=== PATIENT | female | born 1960 | race Caucasian/White ===

== ENCOUNTER 2017-08-22 18:20 | Observation (INO) | payer OTHER ==
[2017-08-22] VITALS (7 sets, daily range): BP systolic 106–116; BP diastolic 65–74; PULSE 79–86; RESP 14–18; TEMP 96.6–97.9; O2SAT 98–99
[~2017-08-22 18:20] MED LIST: CALC600T12 PO; MULT-65 PO; NITR.4 SL; PERC5TAB12 PO
--- NOTE | 2017-08-22 18:36 | PD ---
HPI Chief Complaint: Chest Pain Time Seen by Provider: 18:35 Travel History International Travel<30 days: No Contact w/Intl Traveler<30days: No Traveled to known affect area: No History of Present Illness HPI 57-year-old female came to the emergency room with history of shortness of breath and substernal chest pain for past 45 minutes. Patient says she was taking a nap when she woke up she started feeling like this. Since it was very distressing she asked her to take her to the urgent care. Patient says the pain is substernal and nonradiating all. It feels like a pressure. It's worse upon taking a deep breath. She feels like she cannot get enough air in. Vital signs are stable. She looks anxious. She's never had this kind of pain before. She had a stress test she says many years ago. No history of coronary artery disease or stents. She was sent from urgent care center to the emergency room for workup. [facility] Past Medical History Narrative Medical List of her past medical, surgical, social and family history is reviewed from the nursing note. Cancer: No Cardiovascular Problems: Yes (HEART CATH 02/15) High Cholesterol: Yes Chest Pain: Yes Diabetes: No Diminished Hearing: No Endocrine: Yes Genitourinary: No Hepatitis: No Hiatal Hernia: No Immune Disorder: No Musculoskeletal: No Neurologic: No Psychiatric: No Reproductive: Yes (FIBROIDS; BLEEDING ) Respiratory: No Thyroid Disease: Yes (NODULE- APPT TO FOLLOW) Past Surgical History Abdominal Surgery: No AICD: No Body Medical Devices: BILATERAL BREAST AUGMENTATION Cardiac Surgery: Yes (02/15 HEART CATH) Ear Surgery: No Eye Surgery: No Genitourinary Surgery: No Gynecologic Surgery: Yes (MYOMECTOMY) Joint Replacement: No Oral Surgery: No Pacemaker: No Thoracic Surgery: No Other Surgery: Yes (NASAL SX, BREAST AUMENTATION.) Social History Alcohol Use: No Tobacco Use: No Substance Use: No Allergies-Medications (Allergen,Severity, Reaction): Coded Allergies: codeine (Verified Adverse Reaction, Unknown, N/V, 08/22/17) INTERMEDIATE REACTION ; NAUSEA AND VOMITING Comments List of her allergies reviewed from the nursing note. Reported Meds & Prescriptions Reported Meds & Active Scripts Active No Active Prescriptions or Reported Medications Narrative Medication List of her home medications reviewed from the nursing note. Review of Systems Except as stated in HPI: all other systems reviewed are Neg Cardiovascular: Positive: Chest Pain or Discomfort Respiratory: Positive: Shortness of Breath Physical Exam Narrative GENERAL: Awake, alert, anxious, moderate distress SKIN: Focused skin assessment warm/dry. HEAD: Atraumatic. Normocephalic. EYES: Pupils equal and round. No scleral icterus. No injection or drainage. ENT: No nasal bleeding or discharge. Mucous membranes pink and moist. NECK: Trachea midline. No JVD. CARDIOVASCULAR: Regular rate and rhythm. No murmur appreciated. RESPIRATORY: No accessory muscle use. Clear to auscultation. Breath sounds equal bilaterally. GASTROINTESTINAL: Abdomen soft, non-tender, nondistended. Hepatic and splenic margins not palpable. MUSCULOSKELETAL: No obvious deformities. No clubbing. No cyanosis. No edema. NEUROLOGICAL: Awake and alert. No obvious cranial nerve deficits. Motor grossly within normal limits. Normal speech. PSYCHIATRIC: Appropriate mood and affect; insight and judgment normal. Data Data Last Documented VS Orders Orders Electrocardiogram (08/22/17 18:40) Basic Metabolic Panel (Bmp) (08/22/17 18:40) Complete Blood Count With Diff (08/22/17 18:40) D-Dimer (08/22/17 18:40) Magnesium (Mg) (08/22/17 18:40) Prothrombin Time / Inr (Pt) (08/22/17 18:40) Troponin I (08/22/17 18:40) Chest, Single Ap (08/22/17 18:40) Ecg Monitoring (08/22/17 18:40) Bilateral Bp Monitoring (08/22/17 18:40) Iv Access Insert/Monitor (08/22/17 18:40) Oximetry (08/22/17 18:40) Oxygen Administration (08/22/17 18:40) Aspirin Chew (Aspirin Chew) (08/22/17 18:45) Sodium Chloride 0.9% Flush (Ns Flush) (08/22/17 18:45) Alprazolam (Xanax) (08/22/17 18:45) Admit Order (Ed Use Only) (08/22/17 20:30) Place In Observation (08/22/17 20:30) Activity Bed Rest With Brp (08/22/17 20:30) Vital Signs (Adult) Q4H (08/22/17 20:30) Cardiac Rhythm .As Directed (08/22/17 20:30) Notify Dr: Other .PRN (08/22/17 20:30) Notify Dr. Parameters (08/22/17 20:30) Resp Oxygen Nasal Cannula (08/22/17 ) Diet Npo (08/23/17 Breakfast) Ckmb (Isoenzyme) Profile (08/22/17 22:00) Ckmb (Isoenzyme) Profile (08/23/17 01:00) Troponin I (08/22/17 22:00) Troponin I (08/23/17 01:00) Electrocardiogram (08/22/17 22:00) Electrocardiogram (08/23/17 01:00) ^ Obtain (08/22/17 20:30) Sodium Chloride 0.9% Flush (Ns Flush) (08/22/17 20:30) Sodium Chloride 0.9% Flush (Ns Flush) (08/22/17 21:00) Acetaminophen (Tylenol) (08/22/17 20:30) Morphine Inj (Morphine Inj) (08/22/17 20:30) Ondansetron Inj (Zofran Inj) (08/22/17 20:30) Paint Striping Machine Operator / Telemetry MIQUEL.Q8H (08/22/17 20:30) Heparin Inj (Heparin Inj) (08/22/17 22:00) Labs Laboratory Tests Test 08/22/17 18:45 White Blood Count 7.1 TH/MM3 Red Blood Count 4.34 MIL/MM3 Hemoglobin 13.2 GM/DL Hematocrit 38.1 % Mean Corpuscular Volume 87.7 FL Mean Corpuscular Hemoglobin 30.4 PG Mean Corpuscular Hemoglobin Concent 34.7 % Red Cell Distribution Width 11.9 % Platelet Count 311 TH/MM3 Mean Platelet Volume 7.6 FL Neutrophils (%) (Auto) 41.1 % Lymphocytes (%) (Auto) 49.4 % Monocytes (%) (Auto) 8.4 % Eosinophils (%) (Auto) 0.8 % Basophils (%) (Auto) 0.3 % Neutrophils # (Auto) 2.9 TH/MM3 Lymphocytes # (Auto) 3.5 TH/MM3 Monocytes # (Auto) 0.6 TH/MM3 Eosinophils # (Auto) 0.1 TH/MM3 Basophils # (Auto) 0.0 TH/MM3 CBC Comment DIFF FINAL Differential Comment Prothrombin Time 9.9 SEC Prothromb Time International Ratio 1.0 RATIO D-Dimer Quantitative (PE/DVT) 0.20 MG/L FEU Blood Urea Nitrogen 11 MG/DL Creatinine 0.77 MG/DL Random Glucose 75 MG/DL Calcium Level 8.6 MG/DL Magnesium Level 2.2 MG/DL Sodium Level 139 MEQ/L Potassium Level 3.4 MEQ/L Chloride Level 105 MEQ/L Carbon Dioxide Level 26.3 MEQ/L Anion Gap 8 MEQ/L Estimat Glomerular Filtration Rate 78 ML/MIN Troponin I LESS THAN 0.02 NG/ML MDM Medical Decision Making Medical Screen Exam Complete: Yes Emergency Medical Condition: Yes Medical Record Reviewed: Yes Interpretation(s) Twelve-lead EKG was reviewed by me. Normal sinus rhythm, normal axis, nonspecific ST-T wave changes. Heart rate of 83 bpm. Differential Diagnosis ACS, non-STEMI, PE Narrative Course 7:34 PM patient was given 2 baby aspirin and his Xanax. Awaiting for blood test results. Chest x-rays within normal limit. Patient will be admitted to the chest pain center to be ruled out Procedures EKG Prior to Arrival: No Diagnosis Primary Impression: Chest pain Qualified Codes: R07.9 - Chest pain, unspecified Admitting Information Admitting Physician Requests: Observation Scripts No Active Prescriptions or Reported Meds Sb Wong MD Aug 22, 2017 18:36
[2017-08-22] MEDS ORDERED: ALPRAZolam 0.5 MG TAB PO ONE (18:45)
[2017-08-22] MEDS ORDERED: ASPIRIN 81 MG CHEW TAB PO ONE (18:45)
[2017-08-22] MEDS ORDERED: SODIUM CHLORIDE 0.9% FLUSH 10 ML FLUSH IVF PRN (18:45)
--- NOTE | 2017-08-22 19:16 | RADRPT ---
EXAM DATE/TIME: 08/22/2017 18:51 [facility] COMPARISON: No previous studies available for comparison. INDICATIONS : Chest pain, short of breath MEDICAL HISTORY : None. SURGICAL HISTORY : None. ENCOUNTER: Initial ACUITY: 1 day PAIN SCORE: 7/10 LOCATION: Bilateral chest FINDINGS: Portable AP view of the chest demonstrates a normal-sized cardiac silhouette. No effusion, consolidat ion, or pneumothorax is visualized. The bones and soft tissues demonstrate no acute abnormality. Lung s are mildly underinflated. EKG lines overlie the patient. CONCLUSION: No acute cardiopulmonary abnormality is identified. Sudhakar Cheema MD on August 22, 2017 at 19:13 Board Certified Radiologist. This report was verified electronically.
[2017-08-22 19:19] LABS: AUTOMATED NEUTROPHIL # 2.9 TH/MM3 (1.8-7.7); BASOPHIL % 0.3 % (0.0-2.0); EOSINOPHIL # 0.1 TH/MM3 (0-0.4); EOSINOPHIL % 0.8 % (0.0-4.0); HEMATOCRIT 38.1 % (35.0-46.0); HEMOGLOBIN 13.2 GM/DL (11.6-15.3); LYMPH % 49.4 % (9.0-44.0); LYMPHOCYTE # 3.5 TH/MM3 (1.0-4.8); MEAN CELL VOLUME 87.7 FL (80.0-100.0); MEAN CORPUSCULAR HEMOGLOBIN 30.4 PG (27.0-34.0); MEAN CORPUSCULAR HGB CONC 34.7 % (32.0-36.0); MEAN PLATELET VOLUME 7.6 FL (7.0-11.0); MONO % 8.4 % (0.0-8.0); MONOCYTE # 0.6 TH/MM3 (0-0.9); NEUT % 41.1 % (16.0-70.0); PLATELET COUNT 311 TH/MM3 (150-450); RED BLOOD COUNT 4.34 MIL/MM3 (4.00-5.30); RED CELL DISTRIBUTION WIDTH 11.9 % (11.6-17.2); WHITE BLOOD COUNT 7.1 TH/MM3 (4.0-11.0)
[2017-08-22 19:25] LABS: CHLORIDE 105 MEQ/L (98-107); SODIUM (NA) 139 MEQ/L (136-145)
[2017-08-22 19:27] LABS: CALCIUM 8.6 MG/DL (8.5-10.1)
[2017-08-22 19:28] LABS: BICARBONATE 26.3 MEQ/L (21.0-32.0); BLOOD UREA NITROGEN 11 MG/DL (7-18); GLUCOSE,RANDOM 75 MG/DL (74-106); MAGNESIUM 2.2 MG/DL (1.5-2.5)
[2017-08-22 19:31] LABS: CREATININE 0.77 MG/DL (0.50-1.00); GLOMERULAR FILTRATION RATE 78 ML/MIN (>89)
[2017-08-22 19:53] LABS: TROPONIN I LESS THAN 0.02 NG/ML (0.02-0.05)
[2017-08-22 19:54] LABS: PROTHROMBIN TIME - PATIENT 9.9 SEC (9.8-11.6)
[2017-08-22 19:56] LABS: D-DIMER 0.2 MG/L FEU (0.00-0.50)
[2017-08-22] MEDS ORDERED: SODIUM CHLORIDE 0.9% FLUSH 10 ML FLUSH IV FLUSH PRN (20:30)
[2017-08-22] MEDS ORDERED: MORPHINE SULFATE 4 MG/ML INJ IV PUSH PRN (20:30)
[2017-08-22] MEDS ORDERED: ACETAMINOPHEN 500 MG CPLT PO PRN (20:30)
[2017-08-22] MEDS ORDERED: ONDANSETRON HCL 4 MG/2 ML VIAL IV PUSH PRN (20:30)
[2017-08-22] MEDS: SODIUM CHLORIDE 0.9% FLUSH 10 ML FLUSH IV FLUSH SCH (21:00)
[2017-08-22] MEDS: HEPARIN SODIUM - SQ 10,000 UNITS/ML VIAL SQ SCH (22:06)
[2017-08-22 22:39] LABS: TROPONIN I LESS THAN 0.02 NG/ML (0.02-0.05)
[2017-08-23] VITALS (7 sets, daily range): BP systolic 95–108; BP diastolic 55–78; PULSE 58–85; RESP 15–20; TEMP 96.7–98; O2SAT 98–100
[2017-08-23 01:59] LABS: TROPONIN I LESS THAN 0.02 NG/ML (0.02-0.05)
[2017-08-23] MEDS: HEPARIN SODIUM - SQ 10,000 UNITS/ML VIAL SQ SCH ×2 (06:04→14:01)
[2017-08-23] MEDS: SODIUM CHLORIDE 0.9% FLUSH 10 ML FLUSH IV FLUSH SCH (07:52)
[2017-08-23] MEDS ORDERED: NITROGLYCERIN 0.4 MG SL 25 TABS/BTL SL PRN (08:30)
--- NOTE | 2017-08-23 08:33 | HHI.HP ---
[facility] Service [facility] Primary Care Physician Unknown Admission Diagnosis chest pain, rule out ACS Diagnoses: (1) Chest pain Diagnosis: Principal (2) Shortness of breath Diagnosis: Principal Chief Complaint: Chest pain or shortness of breath Travel History International Travel<30 Days: No Contact w/Intl Traveler <30 Da: No Traveled to Known Affected Are: No History of Present Illness This is a 57-year-old female with known history of hypertension, hyponatremia, chronic neck pain, possible diabetes controlled by diet who presented to hospital because acute onset of shortness of breath and dyspnea. Patient states that she is lying down and taking a nap yesterday and then approximately 6 PM she woke up suddenly with severe shortness of breath, anterior chest pain which she describes as a lead weight sitting on her chest. She tried to sit output had only back down because of her shortness of breath. Patient states that it was 10/10 on a pain scale. There is no associated nausea , vomiting, diaphoresis, radiation of discomfort. Because of the discomfort she told her to take her to urgent care for evaluation. She went to urgent care who notified her to go to the ER. Patient came to emergency department and was given aspirin and Xanax in by 8:30 she is feeling much better and symptoms had completely resolved. Workup was done which did not indicate any acute etiology of her discomfort and was recommended patient be observed in the chest pain center for further evaluation management. Patient has been evaluated by Dr. Parr in the past. In 2013 she did undergo cardiac catheterization which was completely normal. She has not followed up with Dr. Parr the last couple years secondary to change in her insurance. At the present time she states that she did have some chest discomfort this morning at 7:30 AM with associated dizziness. She indicates that the dizziness is much better when she lies down. Patient has increased risk factors include age, hypertension, hyperlipidemia, possible diabetes, family history of heart disease , history tobacco use. Review of Systems Constitutional: COMPLAINS OF: Dizziness Respiratory: COMPLAINS OF: Shortness of breath Cardiovascular: COMPLAINS OF: Chest pain Except as stated in HPI: all other systems reviewed are Neg Past Family Social History Past Medical History Hypertension Hyperlipidemia Diabetes diet controlled Chronic neck pain Past Surgical History Cataract surgery Hysterectomy Sinus surgery Breast augmentation Reported Medications Reported Meds & Active Scripts Active No Active Prescriptions or Reported Medications Allergies: Coded Allergies: codeine (Verified Adverse Reaction, Unknown, N/V, 08/22/17) INTERMEDIATE REACTION ; NAUSEA AND VOMITING Family History Reviewed is significant for mother at age 51 from heart disease, father at age 72 from mesothelioma Social History Patient continues to use electronic cigarette. She quit smoking cigarettes in 2010, prior to that she smoked a half pack a cigarettes a day since she is 35 years old. Patient does use alcohol occasionally. Denies any illicit drugs Physical Exam Vital Signs Vital Signs Date Time Temp Pulse Resp B/P (MAP) Pulse Ox O2 Delivery O2 Flow Rate FiO2 08/23/17 08:00 96.9 68 16 95/57 (70) 100 08/23/17 04:43 97.3 72 20 101/61 (74) 99 08/23/17 00:34 97.0 85 16 105/55 (72) 100 08/22/17 21:55 79 08/22/17 21:54 96.6 79 14 110/65 (80) 99 08/22/17 21:42 81 16 111/68 (82) 100 Nasal Cannula 2.00 08/22/17 21:29 99 Nasal Cannula 2.00 08/22/17 20:10 81 16 106/69 (81) 99 Nasal Cannula 2.00 08/22/17 19:08 82 16 107/74 (85) 99 Room Air 108/68 (81) 08/22/17 19:08 99 Room Air 08/22/17 19:08 99 Room Air 08/22/17 18:57 16 99 Room Air 08/22/17 18:40 97.9 86 18 116/73 (87) 98 Physical Exam GENERAL: Well-developed, well-nourished, in no acute distress. alert and orientated HEENT: Head is normocephalic without any lesions or masses noted. Facial features are symmetric. Eyes: Pupils equal round reactive to light. Extraocular muscles are intact. Conjunctivae were clear. Oropharyngeal: Pharynx without any erythema edema. Tongue is midline without deviation. Buccal mucosa is moist without any masses or lesions NECK: Supple without any masses. Trachea midline no deviation. No JVD, no bruits are appreciated CARDIAC: Regular rhythm, regular rate. S1/S2 are heard. No murmurs gallops or rubs. LUNGS: Clear to auscultation bilaterally. No wheeze, rhonchi or rales. No use of accessory muscles on inspiration or expiration. ABDOMEN: Soft, nontender. Nondistended. Bowel sounds heard in all 4 quadrants. No organomegaly or masses. Negative rebound, negative guarding EXTREMITIES: No edema, pulses are equal bilaterally. No cyanosis or clubbing NEUROLOGY: Mood and affect appear appropriate. Cranial nerves II through XII grossly intact. Muscle strength 5/5 in upper and lower extremities bilaterally. Deep tendon reflexes are 2+ in upper and lower extremities bilaterally. Laboratory Laboratory Tests Test 08/22/17 18:45 08/22/17 22:10 08/23/17 01:30 White Blood Count 7.1 Red Blood Count 4.34 Hemoglobin 13.2 Hematocrit 38.1 Mean Corpuscular Volume 87.7 Mean Corpuscular Hemoglobin 30.4 Mean Corpuscular Hemoglobin Concent 34.7 Red Cell Distribution Width 11.9 Platelet Count 311 Mean Platelet Volume 7.6 Neutrophils (%) (Auto) 41.1 Lymphocytes (%) (Auto) 49.4 Monocytes (%) (Auto) 8.4 Eosinophils (%) (Auto) 0.8 Basophils (%) (Auto) 0.3 Neutrophils # (Auto) 2.9 Lymphocytes # (Auto) 3.5 Monocytes # (Auto) 0.6 Eosinophils # (Auto) 0.1 Basophils # (Auto) 0.0 CBC Comment DIFF FINAL Differential Comment Prothrombin Time 9.9 Prothromb Time International Ratio 1.0 D-Dimer Quantitative (PE/DVT) 0.20 Blood Urea Nitrogen 11 Creatinine 0.77 Random Glucose 75 Calcium Level 8.6 Magnesium Level 2.2 Sodium Level 139 Potassium Level 3.4 Chloride Level 105 Carbon Dioxide Level 26.3 Anion Gap 8 Estimat Glomerular Filtration Rate 78 Troponin I LESS THAN 0.02 LESS THAN 0.02 LESS THAN 0.02 Total Creatine Kinase 61 70 Result Diagram: 08/22/17184408/22/171844 Imaging Last Impressions Chest X-Ray 08/22/171839 Signed Impressions: Service Date/Time: Tuesday, August 22, 2017 18:51 - CONCLUSION: No acute cardiopulmonary abnormality is identified. MD Magali Baldwin VTE Risk Assessment Caprini VTE Risk Assessment: No/Low Risk (score <= 1) Caprini Risk Assessment Model Point Value = 1 Point Value = 2 Point Value = 3 Point Value = 5 Age 41-60 Minor surgery BMI > 25 kg/m2 Swollen legs Varicose veins or History of unexplained or recurrent spontaneous Oral contraceptives or hormone replacement Sepsis (< 1 month) Serious lung disease, including pneumonia (< 1 month) Abnormal pulmonary function Acute myocardial infarction Congestive heart failure (< 1 month) History of inflammatory bowel disease Medical patient at bed rest Age 61-74 Arthroscopic surgery Major open surgery (> 45 min) Laparoscopic surgery (> 45 min) Malignancy Confined to bed (> 72 hours) Immobilizing plaster cast Central venous access Age >= 75 History of VTE Family history of VTE Factor V Leiden Prothrombin [id number] Lupus anticoagulant Anticardiolipin antibodies Elevated serum homocysteine Heparin-induced thrombocytopenia Other congenital or acquired thrombophilia Stroke (< 1 month) Elective arthroplasty Hip, pelvis, or leg fracture Acute spinal cord injury (< 1 month) Prophylaxis Regimen Total Risk Factor Score Risk Level Prophylaxis Regimen 0-1 Low Early ambulation 2 Moderate Order ONE of the following: *Sequential Compression Device (SCD) *Heparin 5000 units SQ BID 3-4 Higher Order ONE of the following medications: *Heparin 5000 units SQ TID *Enoxaparin/Lovenox 40 mg SQ daily (WT < 150 kg, CrCl > 30 mL/min) *Enoxaparin/Lovenox 30 mg SQ daily (WT < 150 kg, CrCl > 10-29 mL/min) *Enoxaparin/Lovenox 30 mg SQ BID (WT < 150 kg, CrCl > 30 mL/min) AND/OR *Sequential Compression Device (SCD) 5 or more Highest Order ONE of the following medications: *Heparin 5000 units SQ TID (Preferred with Epidurals) *Enoxaparin/Lovenox 40 mg SQ daily (WT < 150 kg, CrCl > 30 mL/min) *Enoxaparin/Lovenox 30 mg SQ daily (WT < 150 kg, CrCl > 10-29 mL/min) *Enoxaparin/Lovenox 30 mg SQ BID (WT < 150 kg, CrCl > 30 mL/min) AND *Sequential Compression Device (SCD) Assessment and Plan Assessment and Plan Chest pain, atypical Patient with increased risk factors include age, postmenopausal, hypertension , hypokalemia, possible diabetes, family history of heart disease, tobacco use Patient had been ruled out for acute coronary event with serial cardiac enzymes that are negative Serial EKGs show normal sinus rhythm without any changes D-dimer was negative which ruled out any embolic etiology I offered patient exercise stress test, however patient states that she is too scared to do one of those at this time. She would like to have the myocardial perfusion study done instead. Myocardial pefusion study was negative for any ischemia, low risk Patient continue on aspirin, nitroglycerin as needed Patient has history of hypertension, hyperlipidemia, possible diabetes Continue lifestyle modifications DVT prevention Low risk, early ambulation Discharge disposition Discharge home in stable condition Activity: Ad dheeraj. Diet: Healthy heart diet Medications per medication reconciliation Follow-up with primary medical doctor in one week Problem Qualifiers (1) Chest pain: Qualified Codes: R07.9 - Chest pain, unspecified [place] Aug 23, 2017 08:33
[2017-08-23] MEDS ORDERED: REGADENOSON INJ 0.4 MG/5 ML SYR IV ONE (15:51)
--- NOTE | 2017-08-23 16:47 | HHI.DCPOC ---
Discharge Care Plan Diagnosis: (1) Chest pain Goals to Promote Your Health * To prevent worsening of your condition and complications * To maintain your health at the optimal level Directions to Meet Your Goals Take your medications as prescribed Follow your dietary instruction Follow activity as directed Keep your appointments as scheduled Take your immunizations and boosters as scheduled If your symptoms worsen call your PCP, if no PCP go to Urgent Care Center or Emergency Room Smoking is Dangerous to Your Health. Avoid second hand smoke Call the 24-hour hour crisis hotline for domestic abuse at [place] Aug 23, 2017 16:47
--- NOTE | 2017-08-23 16:54 | RADRPT ---
EXAM DATE/TIME: 08/23/2017 15:24 [facility] COMPARISON: No previous studies available for comparison. INDICATIONS : Mid chest pain with shortness of breath for one day. Angina. DOSE: 26.1 mCi Tc99m Myoview at stress. 8.7 mCi Tc99m Myoview at rest. 0.4 mg Lexiscan STRESS SYMPTOMS: Shortness of breath and chest pressure. EJECTION FRACTION: > 70% MEDICAL HISTORY : Hypertension. Diabetes mellitus type 2. SURGICAL HISTORY : Hysterectomy. Breast augmentation. ENCOUNTER: Initial ACUITY: 1 day PAIN SCALE: 10/10 LOCATION: Midsternal chest TECHNIQUE: The patient underwent pharmacologic stress with infusion of prescribed dose. Continuous ECG tracing was monitored during stress. Gated SPECT imaging was performed after stress and conventional SPECT i maging was performed at rest. The examination was performed on a SPECT/CT scanner, both attenuation and non-corrected datasets were reviewed. FINDINGS: DISTRIBUTION: The maximum perfused segment at stress is in the anterior wall. PERFUSION STUDY: The pattern of perfusion at stress is within normal limits, with regional variation effusion within 2 5%. Summed stress score is inaccurate due to incorporation of activity within the liver scanning the inferior segment analysis. There is no evidence of redistribution. GATED STUDY: There is intact wall motion and thickening without hypokinetic or dyskinetic segments. CONCLUSION: 1. No evidence of stress-induced ischemia. 2. Intact wall motion with greater than 70% ejection fraction. RISK CATEGORY: Low (<1% Annual Mortality Rate) Lukas Saeed MD on August 23, 2017 at 16:50 Board Certified Radiologist. This report was verified electronically.
--- NOTE | 2017-08-23 22:57 | EKG ---
Date Performed: 08/23/2017 Time Performed: 00:57:50 PTAGE: 57 years EKG: Sinus rhythm NORMAL ECG PREVIOUS TRACING : 08/22/2017 22.11 DOCTOR: Cheyenne Zavala Interpretating Date/Time 08/23/2017 22:50:57
--- NOTE | 2017-08-23 22:58 | EKG ---
Date Performed: 08/22/2017 Time Performed: 22:11:45 PTAGE: 57 years EKG: Sinus rhythm WITH SINUS ARRHYTHMIA NORMAL ECG PREVIOUS TRACING : 08/22/2017 18.46 DOCTOR: Cheyenne Zavala Interpretating Date/Time 08/23/2017 22:51:29
--- NOTE | 2017-08-23 23:03 | EKG ---
Date Performed: 08/22/2017 Time Performed: 18:46:46 PTAGE: 57 years EKG: Sinus rhythm NORMAL ECG INTERPRETATION BASED ON A DEFAULT AGE OF 40 YEARS PREVIOUS TRACING : 04/09/2014 13.49 DOCTOR: Cheyenne Zavala Interpretating Date/Time 08/23/2017 22:55:21
--- NOTE | 2017-08-24 07:34 | TR ---
Date Performed: 08/23/2017 Time Performed: 16:01:54 DOCTOR: Miranda Robertson DRUG LIST: CLINICAL HISTORY: ANGINA REASON FOR TEST: Angina REASON FOR ENDING: OBSERVATION: CONCLUSION: Lexiscan stress test was performed under standard four minute protocol. Radionuclid e was injected one minute prior to ending the test. No electrocardiographic abormalities were present to suggest ischemia. Nuclear imaging and interpretation are pending. COMMENTS:
== END 2017-08-23 18:41 | disposition home or self-care (01) ==
LOC: PHED 18:20 → PHEDA 20:32 → PH3A 21:42
PROVIDERS: ADMIT Hospitalist; ATTEND Hospitalist
DX: R07.9 Chest pain, unspecified (principal); I10 Essential (primary) hypertension; E11.9 Type 2 diabetes mellitus without complications; E78.5 Hyperlipidemia, unspecified; M54.2 Cervicalgia; G89.29 Other chronic pain; Z87.891 Personal history of nicotine dependence; Z90.710 Acquired absence of both cervix and uterus; Z82.49 Family history of ischemic heart disease and other diseases of the circulatory system
CPT/HCPCS: 71045; 78452; 80048; 82550; 83735; 84484; 85025; 85379; 85610; 93005; 93017; 96372; 99285; A9502; G0378; J1644; J2785